=== PATIENT | female | born 1975 ===

== ENCOUNTER 2023-12-07 08:08 | Day surgery (SDC) | payer MEDICAID ==
[~2023-12-07] VITALS: Ht 157.5 cm; Wt 86.6 kg
[2023-12-07] MEDS ORDERED: SODIUM CHLORIDE 0.9% 10 ML SYR ONE ×2 (08:12→09:08)
[2023-12-07] MEDS ORDERED: PEPCID40 MG PO (08:40)
[2023-12-07] MEDS ORDERED: TOPROL XL50 MG PO (08:40)
[2023-12-07] MEDS ORDERED: LANTUS100 UNIT SC (08:42)
[2023-12-07] MEDS ORDERED: NOVOLOG100 UNIT SC (08:43)
[2023-12-07] MEDS ORDERED: TRULICITY1.5 MG/0.5 SC (08:45)
[2023-12-07] MEDS ORDERED: PLAVIX75 MG PO (08:45)
[2023-12-07] MEDS ORDERED: BAYER ASPIRIN E81 MG PO (08:46)
[2023-12-07] MEDS ORDERED: SINGULAIR10 MG PO (08:47)
[2023-12-07] MEDS ORDERED: ZYRTEC10 MG PO (08:48)
[2023-12-07] MEDS ORDERED: LIPITOR80 M1 PO (08:49)
[2023-12-07] MEDS ORDERED: FOLIC ACID1 MG PO (08:50)
[2023-12-07] MEDS ORDERED: MIDAZOLAM HCL 2 MG/2 ML VIAL ONE (09:08)
[2023-12-07] MEDS ORDERED: LIDOCAINE MPF 1% (10 MG/ML) 5 ML VIAL ONE (09:37)
[2023-12-07] MEDS ORDERED: BUPIVACAINE HCL PF 0.5 % 50 MG/10 ML SDV ONE (09:37)
[2023-12-07 10:06] VITALS: BP 122/74
== END 2023-12-07 09:50 | disposition home or self-care (01) ==
LOC: ORM 08:08
PROVIDERS: ATTEND Student in an Organized Health Care Education/Training Program
DX: G89.4 Chronic pain syndrome (principal); M54.9 Dorsalgia, unspecified; M54.12 Radiculopathy, cervical region